=== PATIENT | male | born 1965 | race African-American/Black ===

== ENCOUNTER 2022-07-13 11:26 | Emergency (ER) | payer MEDICAID ==
[~2022-07-13] VITALS: Ht 180.3 cm; Wt 82.0 kg
[2022-07-13 11:27] VITALS: BP 144/75
[2022-07-13] MEDS ORDERED: ATOR10TA MT (11:33)
[2022-07-13] MEDS ORDERED: HYDR12.54 MT (11:33)
== END 2022-07-13 14:34 | disposition left against medical advice (07) ==
LOC: ER 11:48
DX: Z53.21 Procedure and treatment not carried out due to patient leaving prior to being seen by health care provider (principal)
CPT/HCPCS: 99283